=== PATIENT | female | born 1985 ===

== ENCOUNTER 2018-03-15 16:40 | Emergency (ER) | payer OTHER ==
[2018-03-15 16:48] VITALS: RESP 16; O2SAT 99
[2018-03-15] MEDS ORDERED: Sodium Chloride 0.9% 1,000 ML IV STA (17:37)
--- NOTE | 2018-03-15 17:41 | ED PDOC ---
HPI: Abdomen Time Seen by Provider: 03/15/18 17:20 Chief Complaint (Nursing): Abdominal Pain Chief Complaint (Provider): Abdominal pain History Per: Patient History/Exam Limitations: no limitations Additional Complaint(s): Pt is 3 days s/p salpingectomy @ [facility] presents with lower abdominal pain and vaginal bleeding, last took Tylenol this AM. Denies fever, nausea, vomiting, vaginal discharge. Past Medical History Reviewed: Nursing Documentation, Vital Signs Vital Signs: Last Vital Signs Temp 99.0 F 03/15/18 16:45 Pulse 86 03/15/18 16:45 Resp 16 03/15/18 16:45 BP 97/57 L 03/15/18 16:45 Pulse Ox 99 03/15/18 16:45 - Medical History PMH: Asthma Denies: Chronic Kidney Disease - Surgical History Other surgeries: Salpingectomy - Family History Family History: States: Unknown Family Hx - Social History Current smoker - smoking cessation education provided: No - Immunization History Hx Tetanus Toxoid Vaccination: No Hx Influenza Vaccination: No Hx Pneumococcal Vaccination: No - Home Medications Home Medications: Ambulatory Orders Medication Instructions Recorded Albuterol 0.5% Inhal Collette (5 mg/ 02/18/16 ml) 20 ml Famotidine [Pepcid] 20 mg PO HS #20 tab 02/18/16 Ibuprofen [Motrin] 600 mg PO Q6H PRN #20 tab 02/18/16 Ciprofloxacin [Cipro] 500 mg PO BID #14 tab 02/26/16 Ibuprofen [Motrin] 600 mg PO Q6 #20 tab 01/10/18 Oseltamivir [Tamiflu] 75 mg PO BID #10 cap 01/10/18 - Allergies Allergies/Adverse Reactions: Allergies Allergy/AdvReac Type Severity Reaction Status Date / Time No Known Allergies Allergy Verified 02/18/16 01:26 Review of Systems Constitutional: Negative for: Fever, Chills Cardiovascular: Negative for: Chest Pain Respiratory: Negative for: Cough, Shortness of Breath Gastrointestinal: Positive for: Abdominal Pain. Negative for: Nausea, Vomiting Genitourinary Female: Positive for: Vaginal Bleeding. Negative for: Dysuria, Hematuria, Vaginal Discharge Musculoskeletal: Negative for: Neck Pain, Back Pain Neurological: Negative for: Headache Physical Exam - Reviewed Nursing Documentation Reviewed: Yes Vital Signs Reviewed: Yes - Physical Exam Appears: Positive for: Uncomfortable Skin: Positive for: Normal Color, Warm, Dry Eye Exam: Positive for: Normal appearance, EOMI, PERRL Cardiovascular/Chest: Positive for: Regular Rate, Rhythm Respiratory: Positive for: Normal Breath Sounds Gastrointestinal/Abdominal: Positive for: Bowel Sounds, Soft, Tenderness ( Periumbilical, minimal erythema, no fluctuance, no discharge, no bleeding, incision C/D/I, suprapubic tenderness) Back: Positive for: Normal Inspection Extremity: Positive for: Normal ROM Neurologic/Psych: Positive for: Alert, Oriented - ECG O2 Sat by Pulse Oximetry: 99 Medical Decision Making Medical Decision Makin yo with abdominal pain 3 days s/p salpingectomy. - labs - CT abd/pelvis - IVF - Morphine Disposition - Disposition
[2018-03-15 18:29] LABS: BASO # 0.1 K/uL (0.0-0.2); BASO % 0.8 % (0.0-2.0); EOS # 0.2 K/uL (0.0-0.7); EOS % 1.6 % (0.0-4.0); HEMOGLOBIN 11.2 g/dL (12.0-16.0); LYMPH % 13.9 % (20.0-40.0); MEAN CELL VOLUME 90.1 fl (81.0-99.0); MEAN CORPUSCULAR HEMOGLOBIN 30.6 pg (27.0-31.0); MONO # 0.9 K/uL (0.0-0.8); MONO % 6.1 % (0.0-10.0); NEUT # 11.2 K/uL (1.8-7.0); NEUT % 77.6 % (50.0-75.0); RBC 3.64 Mil/uL (3.80-5.20); RED CELL DISTRIBUTION WIDTH 12.9 % (11.5-14.5); WHITE BLOOD COUNT 14.5 K/uL (4.8-10.8)
[2018-03-15] MEDS ORDERED: DiphenhydrAMINE 50 mg/ml Inj IVP STA (18:32)
[2018-03-15] MEDS ORDERED: DiphenhydrAMINE 50 mg/ml Inj ONE (18:33)
[2018-03-15 18:39] LABS: ALB/GLOB RATIO 1.2 (1.0-2.1); ALBUMIN 4.1 g/dL (3.5-5.0); ALT/SGPT 33 U/L (9-52); AST/SGOT 21 U/L (14-36); BLOOD UREA NITROGEN 9 mg/dl (7-17); CALCIUM 9.3 mg/dL (8.4-10.2); GFR AFRICAN-AMERICAN > 60; GFR NON-AFRICAN AMERICAN > 60
[2018-03-15 18:40] LABS: SQUAMOUS EPITHIAL 7 /hpf (0-5); URINE BILIRUBIN NEGATIVE (NEGATIVE); URINE BLOOD LARGE (NEGATIVE); URINE CLARITY CLOUDY (Clear); URINE COLOR YELLOW (YELLOW); URINE GLUCOSE (UA) NEG (Normal); URINE LEUKOCYTE ESTERASE TRACE Leu/uL (Negative); URINE PROTEIN 100 mg/dL (NEGATIVE)
--- NOTE | 2018-03-15 19:21 | ED PDOC ---
- Laboratory Results Result Diagrams: 03/15/18 18:10 03/15/18 18:10 - ECG O2 Sat by Pulse Oximetry: 99 - Progress Re-evaluation Time: 23:05 Condition: Re-examined, Improved Medical Decision Making Medical Decision Making: Time: 19:00 Patient signed over to me by Dr. Weller pending CT abdomen, reevaluation, and final disposition. Time: 21:54 CT ABDOMEN AND PELVIS: FINDINGS: Lung bases: Dependent atelectasis. ABDOMEN: Liver: No acute abnormality as visualized. Gallbladder and bile ducts: No acute abnormality as visualized. Pancreas: No acute abnormality as visualized. Spleen: No splenomegaly. Adrenals: No acute abnormality as visualized. Kidneys and ureters: Symmetric emhancement. No hydronephrosis. Stomach and bowel: Limited evaluation without contrast. No obstruction. Appendix: Small appendicoliths noted. PELVIS: Bladder: No acute abnormality as visualized. Reproductive: Endometrial canal appears prominent with heterogeneous appearance. Further evaluation can be performed with dedicated ultrasound. ABDOMEN and PELVIS: Intraperitoneal space: Free air noted. Hemorrhagic fluid visualized in the cul- de-sac. Bones/joints: No acute abnormality as visualized. Soft tissues: Periumbilical fluid/inflammation and small focus of subcutaneous air. Small amount of subcutaneous air in the anterior abdominal wall of the left lower quadrant. Vasculature: No acute abnormality as visualized. No abdominal aortic aneurysm. Lymph nodes: No acute abnormality as visualized. IMPRESSION: Free air noted. Hemorrhagic fluid visualized in the cul-de-sac. Endometrial canal appears prominent with heterogeneous appearance. Further evaluation can be performed with dedicated ultrasound. Periumbilical fluid/inflammation and small focus of subcutaneous air. Small amount of subcutaneous air in the anterior abdominal wall of the left lower quadrant. Please see additional details/findings as above. Time: 22:40 Discussed case and findings with Dr Avelar. Recommends pain control and follow up with her primary OB. Scribe Attestation: Documented by Oscar Tanner, acting as a scribe for Nory Moise MD. Provider Scribe Attestation: All medical record entries made by the Scribe were at my direction and personally dictated by me. I have reviewed the chart and agree that the record accurately reflects my personal performance of the history, physical exam, medical decision making, and the department course for this patient. I have also personally directed, reviewed, and agree with the discharge instructions and disposition. Disposition Doctor Will See Patient In The: Office Counseled Patient/Family Regarding: Studies Performed, Diagnosis, Need For Followup - Clinical Impression Clinical Impression: Abdominal pain, Status post exploratory laparotomy, History of unilateral salpingectomy, Wound infection after surgery - POA Present On Arrival: None - Disposition Disposition: Routine/Home Disposition Time: 23:06 Condition: IMPROVED Additional Instructions: Take your medications as instructed. Follow up with your surgeon in 2 days. Prescriptions: Benzonatate [Tessalon Perles] 100 mg PO TID PRN #15 sgl PRN Reason: Cough Cephalexin [Keflex] 500 mg PO BID #14 capsule traMADol [Ultram] 50 mg PO TID PRN #15 tab PRN Reason: Pain, Severe (8-10) Instructions: Surgical Wound (DC), Wound Infection
[2018-03-15] MEDS ORDERED: HYDROmorphone 0.5 mg/0.5 ml ISec ONE (19:47)
[2018-03-15] MEDS ORDERED: Iohexol 300 100 ML IJ ONE (20:24)
--- NOTE | 2018-03-15 21:54 | CT ---
EXAM: CT Abdomen and Pelvis With Intravenous Contrast CLINICAL HISTORY: 32 years old, female; Pain; Abdominal pain; Prior surgery; Surgery date: 3-7 days post-operative; Surgery type: Salpingectomy; Additional info: Abd pain, 3 days S/P salpingectomy TECHNIQUE: Axial computed tomography images of the abdomen and pelvis with intravenous contrast. All CT scans at this facility use one or more dose reduction techniques, viz.: automated exposure control; ma/kV adjustment per patient size (including targeted exams where dose is matched to indication; i.e. head); or iterative reconstruction technique. Coronal and sagittal reformatted images were created and reviewed. CONTRAST: 96 mL of omnipaque administered intravenously. COMPARISON: No relevant prior studies available. FINDINGS: Lung bases: Dependent atelectasis. ABDOMEN: Liver: No acute abnormality as visualized. Gallbladder and bile ducts: No acute abnormality as visualized. Pancreas: No acute abnormality as visualized. Spleen: No splenomegaly. Adrenals: No acute abnormality as visualized. Kidneys and ureters: Symmetric emhancement. No hydronephrosis. Stomach and bowel: Limited evaluation without contrast. No obstruction. Appendix: Small appendicoliths noted. PELVIS: Bladder: No acute abnormality as visualized. Reproductive: Endometrial canal appears prominent with heterogeneous appearance. Further evaluation can be performed with dedicated ultrasound. ABDOMEN and PELVIS: Intraperitoneal space: Free air noted. Hemorrhagic fluid visualized in the cul-de-sac. Bones/joints: No acute abnormality as visualized. Soft tissues: Periumbilical fluid/inflammation and small focus of subcutaneous air. Small amount of subcutaneous air in the anterior abdominal wall of the left lower quadrant. Vasculature: No acute abnormality as visualized. No abdominal aortic aneurysm. Lymph nodes: No acute abnormality as visualized. IMPRESSION: Free air noted. Hemorrhagic fluid visualized in the cul-de-sac. Endometrial canal appears prominent with heterogeneous appearance. Further evaluation can be performed with dedicated ultrasound. Periumbilical fluid/inflammation and small focus of subcutaneous air. Small amount of subcutaneous air in the anterior abdominal wall of the left lower quadrant. Please see additional details/findings as above.
[2018-03-15 23:25] VITALS: BP 123/63; PULSE 78; TEMP 98.2
== END 2018-03-15 23:25 | disposition home or self-care (01) ==
LOC: H.ER 16:40
DX: T81.4XXA Infection following a procedure, initial encounter (principal); G89.18 Other acute postprocedural pain
CPT/HCPCS: 74177; 80053; 81003; 81025; 85025; 87040; 96361; 96374; 96375; 99284; J1170; J1200; J2270; J7040; Q9967

== ENCOUNTER 2018-12-19 11:20 | Emergency (ER) | payer OTHER ==
[2018-12-19 11:25] VITALS: BMI 40.4
[2018-12-19] MEDS ORDERED: Sodium Chloride 0.9% 1,000 ML IV STA (11:54)
--- NOTE | 2018-12-19 11:57 | ED PDOC ---
HPI: Abdomen Time Seen by Provider: 12/19/18 11:55 Chief Complaint (Nursing): Abdominal Pain Chief Complaint (Provider): ABD PAIN History Per: Patient (33 Y/O FEMALE MIS2 AB1 ECT 1 HERE WITH RUQ PAIN X 5 DAYS GRADUAL ONSET CONTINUOUS. PATIENT CONCERNED SHE HAS HAD ECTOPIC WITH REMOVAL OF LEFT OVARY/FALLOPIAN TUBE LAST YEAR 02/2018 WITH SIMILAR TYPE OF SYMPTOMS. NO VAGINAL BLEEDING TODAY.) Past Medical History Reviewed: Historical Data, Nursing Documentation, Vital Signs Vital Signs: Last Vital Signs Temp 98.3 F 12/19/18 11:25 Pulse 74 12/19/18 11:25 Resp 17 12/19/18 11:25 BP 101/56 L 12/19/18 11:25 Pulse Ox 100 12/19/18 11:25 - Medical History PMH: Asthma Denies: Chronic Kidney Disease - Family History Family History: States: Unknown Family Hx - Immunization History Hx Tetanus Toxoid Vaccination: No Hx Influenza Vaccination: No Hx Pneumococcal Vaccination: No - Home Medications Home Medications: Ambulatory Orders Medication Instructions Recorded Albuterol 0.5% Inhal Collette (5 mg/ 02/18/16 ml) 20 ml Famotidine [Pepcid] 20 mg PO HS #20 tab 02/18/16 Ibuprofen [Motrin] 600 mg PO Q6H PRN #20 tab 02/18/16 Ciprofloxacin [Cipro] 500 mg PO BID #14 tab 02/26/16 Ibuprofen [Motrin] 600 mg PO Q6 #20 tab 01/10/18 Oseltamivir Cap [Tamiflu] 75 mg PO BID #10 cap 01/10/18 Benzonatate [Tessalon Perles] 100 mg PO TID PRN #15 sgl 03/15/18 Cephalexin [Keflex] 500 mg PO BID #14 capsule 03/15/18 traMADol [Ultram] 50 mg PO TID PRN #15 tab 03/15/18 Famotidine [Pepcid] 20 mg PO Q12 PRN #10 tab 12/19/18 Ondansetron ODT [Zofran ODT] 4 mg PO Q8 PRN #10 odt 12/19/18 - Allergies Allergies/Adverse Reactions: Allergies Allergy/AdvReac Type Severity Reaction Status Date / Time morphine Allergy ITCHING Verified 12/19/18 11:30 Review of Systems ROS Statement: Except As Marked, All Systems Reviewed And Found Negative Physical Exam - Reviewed Nursing Documentation Reviewed: Yes Vital Signs Reviewed: Yes - Physical Exam Appears: Positive for: Well, Non-toxic, No Acute Distress Head Exam: Positive for: ATRAUMATIC, NORMAL INSPECTION, NORMOCEPHALIC Skin: Positive for: Normal Color, Warm, DRY Eye Exam: Positive for: EOMI, Normal appearance, PERRL ENT: Positive for: Normal ENT Inspection Neck: Positive for: Normal, Painless ROM Cardiovascular/Chest: Positive for: Regular Rate, Rhythm Respiratory: Positive for: CNT, Normal Breath Sounds Gastrointestinal/Abdominal: Positive for: Normal Exam, Soft, Tenderness (RUQ TENDERNESS) Back: Positive for: Normal Inspection Extremity: Positive for: Normal ROM Neurologic/Psych: Positive for: Alert, Oriented - Laboratory Results Result Diagrams: 12/19/18 12:46 12/19/18 12:46 - ECG O2 Sat by Pulse Oximetry: 100 - Progress ED Course And Treament: US TRANSVAGINAL: IMPRESSION: Single intrauterine gestational sac with average ultrasound age of 5 weeks, 3 days. Yolk sac present, but pole not yet identified. Small subchorionic hemorrhage measuring up to 1.7 cm. Additional nonspecific small cystic structure measuring up to 8 mm. Findings may represent early normal/abnormal . Close clinical follow-up with serial pelvic sonography and serum beta HCG levels is recommended. US ABDOMEN: IMPRESSION: Mild hepatic steatosis. No evidence of cholelithiasis. MAALOX 30 ML PO X 1 DOSE Disposition - Clinical Impression Clinical Impression: Abdominal pain during , Threatened miscarriage in early , Subchorionic hemorrhage - Patient ED Disposition Is Patient to be Admitted: No - Disposition [facility] Disposition: Routine/Home Disposition Time: 15:33 Condition: FAIR Prescriptions: Famotidine [Pepcid] 20 mg PO Q12 PRN #10 tab PRN Reason: Pain, Moderate (4-7) Ondansetron ODT [Zofran ODT] 4 mg PO Q8 PRN #10 odt PRN Reason: Nausea/Vomiting Instructions: Gastritis, Threatened Miscarriage (DC), Ulcer and Gastritis Diet
[2018-12-19 12:31] LABS: SQUAMOUS EPITHIAL 7 /hpf (0-5); URINE AMORPHOUS SEDIMENT RARE /ul (<OCC); URINE BILIRUBIN NEGATIVE (NEGATIVE); URINE BLOOD NEGATIVE (NEGATIVE); URINE CLARITY SLIGHTY-CLOUDY (Clear); URINE COLOR YELLOW (YELLOW); URINE GLUCOSE (UA) NEG (NEGATIVE); URINE HYALINE CAST 0-2 /hpf (0-2); URINE LEUKOCYTE ESTERASE TRACE Leu/uL (Negative); URINE PROTEIN NEGATIVE (NEGATIVE)
[2018-12-19 13:12] LABS: BASO # 0.1 K/uL (0.0-0.2); EOS # 0.2 K/uL (0.0-0.7); EOS % 1.7 % (0.0-4.0); HEMOGLOBIN 13.1 g/dL (12.0-16.0); LYMPH # 1.6 K/uL (1.0-4.3); LYMPH % 15.2 % (20.0-40.0); MEAN CELL VOLUME 89.4 fl (81.0-99.0); MEAN CORPUSCULAR HEMOGLOBIN 29.7 pg (27.0-31.0); MEAN CORPUSCULAR HGB CONC 33.2 g/dL (33.0-37.0); MEAN PLATELET VOLUME 8.1 fl (7.2-11.7); MONO # 0.7 K/uL (0.0-0.8); MONO % 6.2 % (0.0-10.0); NEUT # 8.1 K/uL (1.8-7.0); NEUT % 75.9 % (50.0-75.0); NRBC % 0.1 % (0.0-0.0); RBC 4.42 Mil/uL (3.80-5.20); RED CELL DISTRIBUTION WIDTH 13.2 % (11.5-14.5); WHITE BLOOD COUNT 10.7 K/uL (4.8-10.8)
[2018-12-19 13:13] VITALS: RESP 18
[2018-12-19 13:21] LABS: ALB/GLOB RATIO 1.1 (1.0-2.1); ALBUMIN 3.9 g/dL (3.5-5.0); ALT/SGPT 20 U/L (9-52); AST/SGOT 20 U/L (14-36); BLOOD UREA NITROGEN 7 mg/dl (7-17); CALCIUM 9.3 mg/dL (8.4-10.2); GFR NON-AFRICAN AMERICAN > 60
--- NOTE | 2018-12-19 14:20 | US ---
Date of service: 12/19/2018 HISTORY: R/O GALLSTONES RUQ ABD PAIN COMPARISON: None. TECHNIQUE: Sonographic evaluation of the right upper quadrant of the abdomen. FINDINGS: LIVER: Measures 15.9 cm in length. Increased echogenicity of the liver parenchyma. No mass. No intrahepatic bile duct dilatation. GALLBLADDER: Unremarkable. No gallstones. COMMON BILE DUCT: Measures 2 mm. No stones. No dilatation. PANCREAS: Unremarkable as visualized. No mass. No ductal dilatation. RIGHT KIDNEY: Measures 12.1 x 4.0 x 6.0 cm in length. Normal echogenicity. No calculus, mass, or hydronephrosis. AORTA: No aneurysmal dilatation. IVC: Unremarkable. OTHER FINDINGS: None . IMPRESSION: Mild hepatic steatosis. No evidence of cholelithiasis.
[2018-12-19] MEDS ORDERED: Alum-Mag Hydrox-Simethicone Susp (30 mL) PO STA (14:32)
[2018-12-19] MEDS ORDERED: Alum-Mag Hydrox-Simethicone Susp (30 mL) ONE (14:37)
[2018-12-19 14:43] LABS: LIPASE 89 U/L (23-300)
[2018-12-19 14:58] LABS: PROTHROMBIN TIME 11.3 Seconds (9.8-13.1)
[2018-12-19 15:00] LABS: PARTIAL THROMBOPLASTIN TIME 36.8 Seconds (25.6-37.1)
--- NOTE | 2018-12-19 15:11 | US ---
Date of service: 12/19/2018 PROCEDURE: OB Pelvic Ultrasound HISTORY: R/O ECTOPIC LMP: 11/03/2018 COMPARISON: No relevant prior imaging. FINDINGS: UTERUS: Gestational sac: Single intrauterine gestation. Measures 1.3 cm compatible with estimated gestational age of 5 weeks, 3 days Yolk sac: Measures 0.3 cm pole: Not yet identified Brea-gestational hemorrhage: Subchorionic hemorrhage measuring 1.0 x 0.5 x 1.7 cm Date of delivery (Ultrasound estimated) : 08/18/2019 Additional small cystic structure measuring 8 x 5 x 7 mm. Uterus measures 8.9 x 5.9 x 7.5 cm. Anteverted. Normal in size and appearance. CERVIX: Long and closed. No cervical abnormality seen. RIGHT OVARY: Measures 3.8 x 2.8 x 3.0 cm. Corpus luteum. Normal flow. LEFT OVARY: Measures 2.0 x 1.6 x 1.8 cm. No solid mass. Normal flow. FREE FLUID: None. OTHER FINDINGS: None. IMPRESSION: Single intrauterine gestational sac with average ultrasound age of 5 weeks, 3 days. Yolk sac present, but pole not yet identified. Small subchorionic hemorrhage measuring up to 1.7 cm. Additional nonspecific small cystic structure measuring up to 8 mm. Findings may represent early normal/abnormal . Close clinical follow-up with serial pelvic sonography and serum beta HCG levels is recommended.
[2018-12-19 15:38] VITALS: O2SAT 100
[2018-12-19 16:01] VITALS: BP 110/67; PULSE 86; TEMP 98.4
== END 2018-12-19 15:55 | disposition home or self-care (01) ==
LOC: H.ER 11:20
DX: O26.93 Pregnancy related conditions, unspecified, third trimester (principal); R10.2 Pelvic and perineal pain; O20.0 Threatened abortion; J45.909 Unspecified asthma, uncomplicated; Z79.899 Other long term (current) drug therapy
CPT/HCPCS: 76705; 76817; 80053; 81003; 83690; 84702; 85025; 85610; 85730; 86850; 86900; 87086; 96361; 96374; 99285; J2405; J7030